=== PATIENT | female | born 1950 | race African-American/Black ===

== ENCOUNTER 2025-07-31 17:59 | Inpatient (IN) | payer OTHER ==
[~2025-07-31 17:59] MED LIST: Iopamidol-370 76% 500 ML MDV (1 ML CHARGE) ONE
[2025-07-31] MEDS ORDERED: Ondansetron PF 4 MG/2 ML Vial ONE (18:50)
[2025-07-31] MEDS ORDERED: Ketorolac Tromethamine 30 MG (1 mL) VIAL ONE (18:50)
[2025-07-31 19:30] LABS: #Basophils Less than 0.03 10x3/uL (0.0-0.2); #Eosinophils 0.22 10x3/uL (0.0-0.7); #Monocytes 0.37 10x3/uL (0.11-0.59); #Neutrophils 4.64 10x3/uL (1.40-6.50); %Basophils 0.1 % (0.0-1.0); %Eosinophils 3.3 % (0.0-10.0); %Lymphocytes 22.0 % (21.0-51.0); %Monocytes 5.5 % (0.0-10.0); %Neutrophils 68.8 % (42.0-75.0); Hematocrit 37.4 % (36.0-47.0); Hemoglobin 11.6 g/dL (12.0-16.0); Mean Corpuscular Hemoglobin 28.9 pg (27.0-31.0); Mean Corpuscular Volume 93.0 fL (78.0-98.0); Platelet Count 272 10x3/uL (130-400); Red Blood Cell (RBC) Count 4.02 mill/uL (4.20-5.40); White Blood Cell (WBC) Count 6.74 10x3/uL (4.8-10.8)
[2025-07-31 19:41] LABS: ALT (SGPT) 8 U/L (Less than 34); AST (SGOT) 29 U/L (11-34); Albumin 4.0 g/dL (3.1-4.5); Alkaline Phosphatase 72 U/L (40-110); Anion Gap 13 mmol/L (10-20); BUN (Urea Nitrogen) 18 mg/dL (9.8-20.1); Bilirubin, Total 0.5 mg/dL (0.3-1.2); Calc. Creatinine Clearance 0 mL/min (70-130); Calcium 9.7 mg/dL (7.8-10.44); Carbon Dioxide 22 mmol/L (23-31); Chloride 109 mmol/L (98-107); Globulin 4.4 g/dL (2.4-3.5); Glucose 106 mg/dL (83-110); Lipase 25 U/L (8-78); Magnesium 2.0 mg/dL (1.6-2.6); Potassium 4.7 mmol/L (3.5-5.1); Sodium 139 mmol/L (136-145)
[2025-07-31 21:36] LABS: Bacteria/HPF None Seen HPF (None Seen); CAUTI Indications for Culture Dysuria,urgency,freq; Glucose, Urine (Dipstick) Normal (Negative); Leukocyte Negative Leu/uL (Negative); Protein, Urine (Dipstick) Negative (Neg-Trace); RBC/HPF 0-3 HPF (0-3); Specific Gravity, Urine 1.027 (1.002-1.036); WBC/HPF 0-3 HPF (0-3)
[2025-07-31 21:43] LABS: Urine Culture Reflex No No
[2025-08-01] MEDS ORDERED: Ondansetron PF 4 MG/2 ML Vial ONE (02:02)
[2025-08-01] MEDS ORDERED: Acetaminophen 325 MG TAB ONE (04:32)
[2025-08-01] MEDS: Famotidine 20 MG TAB PO SCH (10:00)
[2025-08-01] MEDS: Famotidine/PF 20 mg/2ml Vial SLOW IVP SCH (10:01)
[2025-08-01 10:45] VITALS: BMI 28.9
[2025-08-01 11:01] LABS: #Basophils Less than 0.03 10x3/uL (0.0-0.2); #Eosinophils 0.12 10x3/uL (0.0-0.7); #Monocytes 0.63 10x3/uL (0.11-0.59); #Neutrophils 7.55 10x3/uL (1.40-6.50); %Basophils 0.1 % (0.0-1.0); %Eosinophils 1.3 % (0.0-10.0); %Lymphocytes 10.6 % (21.0-51.0); %Monocytes 6.8 % (0.0-10.0); %Neutrophils 80.9 % (42.0-75.0); Hematocrit 32.7 % (36.0-47.0); Hemoglobin 10.4 g/dL (12.0-16.0); Mean Corpuscular Hemoglobin 28.7 pg (27.0-31.0); Mean Corpuscular Volume 90.3 fL (78.0-98.0); Platelet Count 225 10x3/uL (130-400); Red Blood Cell (RBC) Count 3.62 mill/uL (4.20-5.40); White Blood Cell (WBC) Count 9.33 10x3/uL (4.8-10.8)
[2025-08-01 11:38] LABS: Anion Gap 9 mmol/L (10-20); BUN (Urea Nitrogen) 15 mg/dL (9.8-20.1); Calc. Creatinine Clearance 77 mL/min (70-130); Calcium 8.9 mg/dL (7.8-10.44); Carbon Dioxide 23 mmol/L (23-31); Cardiac Risk 2.8 (Less than 4.5); Chloride 109 mmol/L (98-107); Cholesterol 138 mg/dl (< 200 Desired); Glucose 113 mg/dL (83-110); HDL Cholesterol 49 mg/dL (>60 Neg Risk); LDL Cholesterol, Calculated 80 mg/dL; Potassium 3.8 mmol/L (3.5-5.1); Sodium 137 mmol/L (136-145); Triglycerides 46 mg/dL (Less than 150)
[2025-08-01] MEDS: Ondansetron PF 4 MG/2 ML Vial IVP PRN (13:41)
[2025-08-01] MEDS: Acetaminophen 325 MG TAB PO PRN (13:41)
[2025-08-01] MEDS: Carvedilol 25 MG TAB PO SCH (17:23)
[2025-08-02 05:14] LABS: #Basophils Less than 0.03 10x3/uL (0.0-0.2); #Eosinophils 0.09 10x3/uL (0.0-0.7); #Monocytes 0.60 10x3/uL (0.11-0.59); #Neutrophils 6.93 10x3/uL (1.40-6.50); %Basophils 0.1 % (0.0-1.0); %Eosinophils 1.0 % (0.0-10.0); %Lymphocytes 10.9 % (21.0-51.0); %Monocytes 7.0 % (0.0-10.0); %Neutrophils 80.3 % (42.0-75.0); Hematocrit 31.2 % (36.0-47.0); Hemoglobin 9.4 g/dL (12.0-16.0); Mean Corpuscular Hemoglobin 28.2 pg (27.0-31.0); Mean Corpuscular Volume 93.7 fL (78.0-98.0); Platelet Count 196 10x3/uL (130-400); Red Blood Cell (RBC) Count 3.33 mill/uL (4.20-5.40); White Blood Cell (WBC) Count 8.63 10x3/uL (4.8-10.8)
[2025-08-02 06:54] LABS: Sodium 139 mmol/L (136-145)
[2025-08-02 06:55] LABS: Albumin 2.9 g/dL (3.1-4.5); Calcium 8.7 mg/dL (7.8-10.44); Chloride 107 mmol/L (98-107); Potassium 3.7 mmol/L (3.5-5.1)
[2025-08-02 06:56] LABS: Globulin 3.5 g/dL (2.4-3.5); Glucose 117 mg/dL (83-110)
[2025-08-02 06:57] LABS: Anion Gap 14 mmol/L (10-20); Carbon Dioxide 22 mmol/L (23-31)
[2025-08-02 06:59] LABS: Alkaline Phosphatase 78 U/L (40-110); Bilirubin, Total 1.5 mg/dL (0.3-1.2)
[2025-08-02 07:00] LABS: BUN (Urea Nitrogen) 19 mg/dL (9.8-20.1)
[2025-08-02 07:02] LABS: ALT (SGPT) 68 U/L (Less than 34); AST (SGOT) 87 U/L (11-34)
[2025-08-02 07:04] LABS: Calc. Creatinine Clearance 49 mL/min (70-130)
[2025-08-03 04:10] LABS: #Basophils Less than 0.03 10x3/uL (0.0-0.2); #Eosinophils 0.12 10x3/uL (0.0-0.7); #Monocytes 0.57 10x3/uL (0.11-0.59); #Neutrophils 5.94 10x3/uL (1.40-6.50); %Basophils 0.1 % (0.0-1.0); %Eosinophils 1.6 % (0.0-10.0); %Lymphocytes 10.9 % (21.0-51.0); %Monocytes 7.6 % (0.0-10.0); %Neutrophils 79.0 % (42.0-75.0); Hematocrit 28.6 % (36.0-47.0); Hemoglobin 8.7 g/dL (12.0-16.0); Mean Corpuscular Hemoglobin 28.3 pg (27.0-31.0); Mean Corpuscular Volume 93.2 fL (78.0-98.0); Platelet Count 163 10x3/uL (130-400); Red Blood Cell (RBC) Count 3.07 mill/uL (4.20-5.40); White Blood Cell (WBC) Count 7.52 10x3/uL (4.8-10.8)
[2025-08-03 04:39] LABS: ALT (SGPT) 41 U/L (Less than 34); AST (SGOT) 40 U/L (11-34); Albumin 2.7 g/dL (3.1-4.5); Alkaline Phosphatase 70 U/L (40-110); Anion Gap 11 mmol/L (10-20); BUN (Urea Nitrogen) 12 mg/dL (9.8-20.1); Bilirubin, Total 1.0 mg/dL (0.3-1.2); Calc. Creatinine Clearance 69 mL/min (70-130); Calcium 8.6 mg/dL (7.8-10.44); Carbon Dioxide 22 mmol/L (23-31); Chloride 108 mmol/L (98-107); Globulin 3.4 g/dL (2.4-3.5); Glucose 103 mg/dL (83-110); Potassium 3.5 mmol/L (3.5-5.1); Sodium 137 mmol/L (136-145)
[2025-08-03] MEDS: Famotidine 20 MG TAB PO SCH ×2 (08:19→20:26)
[2025-08-03] MEDS ORDERED: Bupivacaine 0.25% HCL 30 ML VIAL ONE (12:50)
[2025-08-03] MEDS ORDERED: fentaNYL PF 100 MCG/2 ML SYRINGE ONE (13:11)
[2025-08-03] MEDS ORDERED: PROPOFOL 20 ML ONE (13:11)
[2025-08-03] MEDS ORDERED: Rocuronium Bromide 10 MG/ML (10ML VIAL) ONE (13:12)
[2025-08-03] MEDS ORDERED: Ondansetron PF 4 MG/2 ML Vial ONE ×2 (13:12→15:44)
[2025-08-03] MEDS ORDERED: Lidocaine 1% PF 5 ML VIAL ONE (13:12)
[2025-08-03] MEDS ORDERED: SUGAMMADEX SODIUM 200 MG/2 ML VIAL ONE (14:32)
[2025-08-03] MEDS ORDERED: PACU-Morphine 4MG/ML VIAL SLOW IVP PRN (15:14)
[2025-08-03] MEDS ORDERED: HYDROmorphone 0.5 MG/0.5 ML SYR SLOW IVP PRN (15:14)
[2025-08-03] MEDS ORDERED: Dextrose 50% Abboject 50 ML SYRINGE SLOW IVP PRN (15:17)
[2025-08-03] MEDS ORDERED: Glucagon 1 MG/ML KIT IM PRN (15:17)
[2025-08-03] MEDS ORDERED: Calcium Carbonate 500 MG ChewTAB PO PRN (15:17)
[2025-08-03] MEDS ORDERED: Scopolamine 1 mg/72 hour Patch ONE (16:51)
[2025-08-03] MEDS: D5 1/2 NS w/20 mEq KCL 1,000 ML IV SCH (17:51)
[2025-08-03] MEDS: Ketorolac Tromethamine 30 MG (1 mL) VIAL IVP SCH (18:39)
[2025-08-03] MEDS: hydrALAZINE 10 MG TAB PO SCH (18:39)
[2025-08-04] MEDS: HYDROcodone/Acetaminophen 10/325 mg Tablet PO PRN (00:18)
[2025-08-04 09:01] LABS: #Basophils Less than 0.03 10x3/uL (0.0-0.2); #Eosinophils 0.22 10x3/uL (0.0-0.7); #Monocytes 0.33 10x3/uL (0.11-0.59); #Neutrophils 3.51 10x3/uL (1.40-6.50); %Basophils 0.2 % (0.0-1.0); %Eosinophils 4.7 % (0.0-10.0); %Lymphocytes 13.4 % (21.0-51.0); %Monocytes 7.0 % (0.0-10.0); %Neutrophils 74.5 % (42.0-75.0); Hematocrit 27.6 % (36.0-47.0); Hemoglobin 8.5 g/dL (12.0-16.0); Mean Corpuscular Hemoglobin 28.7 pg (27.0-31.0); Mean Corpuscular Volume 93.2 fL (78.0-98.0); Platelet Count 187 10x3/uL (130-400); Red Blood Cell (RBC) Count 2.96 mill/uL (4.20-5.40); White Blood Cell (WBC) Count 4.71 10x3/uL (4.8-10.8)
[2025-08-04 09:18] LABS: ALT (SGPT) 51 U/L (Less than 34); AST (SGOT) 68 U/L (11-34); Albumin 2.4 g/dL (3.1-4.5); Alkaline Phosphatase 81 U/L (40-110); Anion Gap 10 mmol/L (10-20); BUN (Urea Nitrogen) 15 mg/dL (9.8-20.1); Bilirubin, Total 0.9 mg/dL (0.3-1.2); Calc. Creatinine Clearance 62 mL/min (70-130); Calcium 8.4 mg/dL (7.8-10.44); Carbon Dioxide 21 mmol/L (23-31); Chloride 108 mmol/L (98-107); Globulin 3.7 g/dL (2.4-3.5); Glucose 130 mg/dL (83-110); Potassium 3.4 mmol/L (3.5-5.1); Sodium 136 mmol/L (136-145)
[2025-08-04 13:56] VITALS: BP 175/79; TEMP 98
== END 2025-08-04 14:16 | disposition home or self-care (01) | DRG 418 ==
LOC: ERS 17:59 → ERHOLD 08-01 00:44 → 2SE 08-01 08:50 → OBSVTOIN 08-02 10:51
PROVIDERS: ADMIT Internal Medicine; ATTEND Internal Medicine
PROC: 0FT44ZZ Resection of Gallbladder, Percutaneous Endoscopic Approach (ICD-10-PCS; principal; 2025-08-03)
PROC: 8E0W4CZ Robotic Assisted Procedure of Trunk Region, Percutaneous Endoscopic Approach (ICD-10-PCS; 2025-08-03)
PROC: 3E03329 Introduction of Other Anti-infective into Peripheral Vein, Percutaneous Approach (ICD-10-PCS; 2025-08-03)
PROC: 3E033XZ Introduction of Vasopressor into Peripheral Vein, Percutaneous Approach (ICD-10-PCS; 2025-08-03)
DX: K80.00 Calculus of gallbladder with acute cholecystitis without obstruction (principal); I5A Non-ischemic myocardial injury (non-traumatic); I10 Essential (primary) hypertension; I25.10 Atherosclerotic heart disease of native coronary artery without angina pectoris; Z95.0 Presence of cardiac pacemaker; Z79.82 Long term (current) use of aspirin; Z79.899 Other long term (current) drug therapy; Z82.49 Family history of ischemic heart disease and other diseases of the circulatory system; Z85.3 Personal history of malignant neoplasm of breast
CPT/HCPCS: 36415; 36416; 74177; 76705; 78226; 80048; 80053; 80061; 81001; 83036; 83690; 83735; 84484; 85025; 88304; 93005; 96361; 96374; 96375; 96376; A9537; C1889; G0378; J0169; J0665; J1885; J2270; J2272; J2405; J2543; J2550; J2704; J3010; J3480; J7030; Q9967; S2900